=== PATIENT | male | born 1955 | race Hispanic/Latino ===

== ENCOUNTER 2019-08-14 14:00 | Outpatient (CLI) | payer OTHER, SELFPAY ==
[2019-08-14 14:44] LABS: Alanine Aminotransferase 19 U/L (16-63); Albumin Level 3.4 g/dL (3.4-5.0); Alkaline Phosphatase 179 U/L (46-116); Aspartate Amino Transferase 21 U/L (15-37); Bilirubin,Total 0.3 mg/dL (0.00-1.00); Blood Urea Nitrogen 27 mg/dL (7-18); Calcium 7.9 mg/dL (8.5-10.1); Carbon Dioxide 33 mmol/L (21-32); Chloride 98 mmol/L (98-108); Estimated Glomerular Filt Rate 9; Glucose 243 mg/dL (70-99); Osmolality Calculated 297 mOsm/kg (285-295); Sodium 137 mmol/L (136-145); Total Protein 6.7 g/dL (6.4-8.2)
== END 2019-08-14 14:01 | disposition home or self-care (01) ==
PROVIDERS: PCP Family Medicine
DX: N18.6 End stage renal disease (principal)
CPT/HCPCS: 36415; 80053

== ENCOUNTER 2019-10-12 12:56 | Outpatient (RCR) | payer MEDICARE, SELFPAY | END 2020-01-08 16:39 | disposition home or self-care (01) | PROVIDERS: PCP Family Medicine; Visit Provider Internal Medicine Cardiovascular Disease | DX: I25.2 Old myocardial infarction (principal); Z98.61 Coronary angioplasty status | CPT/HCPCS: 93798 ==

== ENCOUNTER 2019-12-26 12:26 | Outpatient (CLI) | payer MEDICARE, SELFPAY ==
--- NOTE | ~2019-12-26 | CT_ITS ---
EXAMINATION: CT abdomen pelvis wo con DATE: 12/26/2019 13:05 INDICATION: Abdominal pain, swelling, discomfort. Left groin and leg bruising. TECHNIQUE: Computed tomography (CT) of the abdomen and pelvis was performed without intravenous contr ast. Automated exposure control and iterative reconstruction technique were employed. Exam dose: 906 .99 mGy-cm total exam DLP. COMPARISON: None. FINDINGS: There is minimal atelectasis or scarring at the lung bases. Normal heart size. Coronary artery calcification. Trace pericardial fluid. Status post cholecystectomy. No hepatic, splenic, pancreatic, and adrenal or renal space-occupying mass lesion is evident. No bile duct or pancreatic duct dilatation. There is severe atrophy and parenchymal thinning of the [place] kidneys. There is a [address] lower pole of the left [place] kidney. 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 No hydronephrosis is evident. The urinary bladder is unremarkable. The prostate gland and s eminal vesicles are unremarkable. There is atherosclerotic calcification of the abdominal aorta and branches but no abdominal aortic an eurysm. No intraperitoneal or retroperitoneal or pelvic mass lesion or adenopathy or ascites. There are numerous diverticula of the sigmoid and descending colon; no CT evidence of diverticulitis. Normal appendix. No bowel obstruction, bowel wall thickening, pneumatosis or intraperitoneal free ai r. There are bilateral fat-containing inguinal hernias. Bilateral vas deferens calcifications just diabetes. No suspicious osteolytic or osteoblastic lesions are noted. There is degenerative spurring of the tho racic spine. IMPRESSION: Status post cholecystectomy Severe bilateral [place] renal atrophy; right pelvic transplant kidney Diverticulosis of the colon; no CT evidence of diverticulitis Bilateral vas deferens calcifications suggesting diabetes Bilateral fat-containing inguinal hernias Reviewed, dictated and finalized at [facility]. Reviewed, dictated and finalized at [facility].
== END 2019-12-26 12:27 | disposition home or self-care (01) ==
PROVIDERS: PCP Family Medicine; Visit Provider Family Medicine
DX: R10.9 Unspecified abdominal pain (principal)
CPT/HCPCS: 74176

== ENCOUNTER 2021-07-11 12:19 | Outpatient (CLI) | payer MEDICARE, SELFPAY ==
--- NOTE | 2021-07-11 12:30 | PC.NURSE ---
Pt to room 211 amb. Injection plan of care explained. Consent signed. Pt has no questions or complaints. Oriented to room. Call boo in reach. Reminded to call with needs.
[2021-07-11] MEDS: FAMOTIDINE 20 MG TABLET PO (12:54)
[2021-07-11] MEDS: diphenhydrAMINE HCl CAP 25 MG CAPSULE PO (12:54)
[2021-07-11] MEDS: ACETAMINOPHEN 325 MG TABLET 650 MG PO (12:54)
[2021-07-11] MEDS: BEBTELOVIMAB 175 MG/2 ML VIAL IV PUSH (12:55)
--- NOTE | 2021-07-11 13:29 | PC.NURSE ---
Pt tolerated medication well. has no complaints. Discharged to home amb per self.
== END 2021-07-11 12:20 | disposition home or self-care (01) ==
LOC: CHSTREATRM 12:22
PROVIDERS: PCP Family Medicine; Visit Provider Family Medicine
DX: U07.1 COVID-19 (principal)
CPT/HCPCS: A9270; M0222; Q0222